=== PATIENT | female | born 1975 | race Two or more races ===

== ENCOUNTER 2019-04-03 22:28 | Emergency (ER) | payer BC, MEDICAID ==
--- NOTE | 2019-04-04 00:19 | ED ---
Complex/Multi-Sys Presentation - HPI Summary HPI Summary: 44-year-old female with significant past medical history presents to the emergency department today with a chief complaint of low back pain 1 year, left ear pain 1 year, jaw numbness, shortness of breath, chest pain. She states her symptoms began after she had an epidural or giving . She describes the back pain as a 4 out of 10 "tightness" on her lumbar spine which radiates down both her legs to her knees. She comes to the emergency room today because she states she has the same symptoms her mother had prior to being diagnosed with stage IV lung cancer. She denies fever, weight loss, changes in appetite, trouble sleeping, night sweats, pain of urination, pain with bowel movements, blood per rectum. She denies tobacco use, alcohol use, recreational drug use. - History Of Current Complaint Chief Complaint: EDBackInjuryPain Time Seen by Provider: 04/03/19 23:44 Hx Obtained From: Patient Onset/Duration: Gradual Onset Timing: Constant Severity Currently: Mild Severity Initially: Mild Character: Sharp Associated Signs And Symptoms: Positive: Chest Pain, Abdominal Pain, Back Pain - Allergies/Home Medications Allergies/Adverse Reactions: Allergies Allergy/AdvReac Type Severity Reaction Status Date / Time No Known Allergies Allergy Verified 04/03/19 22:34 PMH/Surg Hx/FS Hx/Imm Hx Infectious Disease History: No Infectious Disease History: Denies: Traveled Outside the [place] in Last 30 Days - Social History Alcohol Use: None Substance Use Type: Reports: None Smoking Status (MU): Never Smoked Tobacco Review of Systems Constitutional: Negative Eyes: Negative Positive: Ear Ache Positive: Chest Pain Positive: Shortness Of Breath Positive: Abdominal Pain Genitourinary: Negative Positive: Arthralgia Skin: Negative Neurological: Negative Psychological: Normal All Other Systems Reviewed And Are Negative: Yes Physical Exam Triage Information Reviewed: Yes Vital Signs On Initial Exam: Initial Vitals Temp Pulse Resp BP Pulse Ox 99.2 F 64 16 138/83 100 04/03/19 22:33 04/03/19 22:33 04/03/19 22:33 04/03/19 22:33 04/03/19 22:33 Vital Signs Reviewed: Yes Appearance: Positive: Well-Appearing, No Pain Distress, Well-Nourished Skin: Positive: Warm, Skin Color Reflects Adequate Perfusion Head/Face: Positive: Normal Head/Face Inspection Eyes: Positive: EOMI, JULIAN ENT: Positive: Hearing grossly normal, TMs normal Respiratory/Lung Sounds: Positive: Clear to Auscultation, Breath Sounds Present Cardiovascular: Positive: RRR, S1, S2 Abdomen Description: Positive: Nontender, No Organomegaly, Soft. Negative: Distended, Guarding Bowel Sounds: Positive: Present Musculoskeletal: Positive: Strength/ROM Intact, Pain @ - Mild tenderness with palpation of the lumbar paraspinal muscles. No midline tenderness with palpation of the lumbar, thoracic, cervical spine. No ecchymosis or signs of trauma. Neurological: Positive: Normal Psychiatric: Positive: Normal AVPU Assessment: Alert Procedures - Sedation Patient Received Moderate/Deep Sedation with Procedure: No Diagnostics - Vital Signs Vital Signs Temp Pulse Resp BP Pulse Ox 04/03/19 22:33 99.2 F 64 16 138/83 100 - Laboratory Lab Statement: Any lab studies that have been ordered have been reviewed, and results considered in the medical decision making process. Complex Multi-Symp Course/Dx Course Of Treatment: Patient was evaluated in the emergency department today for back pain, chest pain, abdominal pain, ear pain, jaw pain. Patient was seen and evaluated. Chest x-ray was ordered which showed no evidence of acute cardio pulmonary pathology, masses or lesions.. After examination, and consideration of radiologic images it was determined there were no acute medical pathology is requiring immediate intervention. She is to follow-up with a primary care provider [facility] for further evaluation and management of her symptoms. She was told to return to the emergency department immediately if she developed any new or worsening symptoms. The patient agreed to this plan. During the duration of her stay she was afebrile and her vitals are stable. - Diagnoses Differential Diagnoses/HQI/PQRI: Other Provider Diagnoses: Back pain Discharge ED - Sign-Out/Discharge Documenting (check all that apply): Patient Departure - Discharge Plan Condition: Stable Disposition: HOME Patient Education Materials: Chronic Back Pain (DC) Referrals: [facility] [Outside] - 3 Days No Primary Care Phys,NOPCP [Primary Care Provider] - Additional Instructions: You were seen in the emergency department today with concerns of your symptoms of back pain, ear pain, chest pain, abdominal pain, jaw pain. Physical exam and chest x-ray were done and showed no acute pathology. Chest chest x-ray showed no evidence of lesions or masses. Please follow-up with the [facility] provider for further evaluation and management of your chronic back pain and to become established in the area. Please return to the emergency department immediately if you develop any new or worsening symptoms. - Billing Disposition and Condition Condition: STABLE Disposition: Home
[2019-04-04 00:59] VITALS: BP 130/83
== END 2019-04-04 00:58 | disposition home or self-care (01) ==
LOC: ED 22:28
DX: M54.5 Low back pain (principal); R07.9 Chest pain, unspecified; R10.9 Unspecified abdominal pain; H92.09 Otalgia, unspecified ear; R06.02 Shortness of breath; M25.50 Pain in unspecified joint
CPT/HCPCS: 71046; 93005; 99282